=== PATIENT | female | born 1930 | race Caucasian/White ===

== ENCOUNTER 2017-05-21 14:44 | Emergency (ER) | payer MEDICARE ==
--- NOTE | 2017-05-21 15:53 | CT ---
CT HEAD NONCONTRAST DATE: 05/21/17 HISTORY: Fall. Head injury. Altered mental status. FINDINGS: No comparison. There is no evidence of acute intracranial hemorrhage or infarct. Diffuse cortical atrophy and chroni c ischemic small vessel disease are apparent. There is no mass effect or shift of midline structures. There is calcification within the arterial structures at the brain base. Mastoid air cells are clear. Opacification of the left maxillary sinus and left ethmoid air cells are partially visualized. CT face is pending. IMPRESSION: No acute intracranial abnormalities are demonstrated. POS: BLAINE
[2017-05-21 16:07] LABS: #Lymphocytes 1.2 thou/uL (1.20-3.40); #Monocytes 0.4 thou/uL (0.11-0.59); #Neutrophils 5.2 thou/uL (1.40-6.50); %Basophils 0.4 % (0.0-1.0); %Eosinophils 0.7 % (0.0-10.0); %Lymphocytes 17.5 % (21.0-51.0); %Monocytes 6.1 % (0.0-10.0); %Neutrophils 75.4 % (42.0-75.0); Hemoglobin 11.8 g/dL (12.0-16.0); Mean Corpuscular HGB CONC 33.5 g/dL (32.0-36.0); Mean Platelet Volume 7.2 fL (7.4-10.4); Platelet Count 245 thou/uL (130-400); RBC Distribution Width 13.1 % (11.5-14.5); Red Blood Cell (RBC) Count 3.38 mill/uL (4.20-5.40); White Blood Cell (WBC) Count 6.9 thou/uL (4.8-10.8)
--- NOTE | 2017-05-21 16:08 | CT ---
CT FACE NONCONTRAST 05/21/17 HISTORY: Fall. Facial injury. FINDINGS: There is complete heterogeneous opacification of the left maxillary sinus with thickening of the sinu s agee and slight expansion with medial deviation of the medial wall. A sagittally oriented well cor ticated defect extends through the roof of the left maxillary sinus with minimal expansion of the con tents encroaching upon the posterior orbital fat. There is no displacement of the inferior rectus mus jaylen. There is thickening of the remaining osseous structures surrounding the left maxillary sinus. Mi ld mucosal thickening is present within the left ethmoid air cells. Other paranasal sinuses remain cl ear. No acute fracture or dislocation are evident. The globes, mandible and zygomatic arches are inta ct. Mastoid air cells remain well aerated. IMPRESSION: 1. No acute traumatic injury is demonstrated. 2. 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 Mucocele is favored over acute upon chronic left maxillary sinusitis. Please consider ENT evalu ation on a nonemergent basis. POS: BLAINE
[2017-05-21 16:15] LABS: INR-International Normal Ratio 2.8; PTT 48.7 SEC (22.9-36.1); Prothrombin Time 30.5 SEC (12.0-14.7)
[2017-05-21 16:37] LABS: CKMB 1.6 ng/mL (0-6.6); Troponin I 0.015 ng/mL (< 0.028)
[2017-05-21 16:38] LABS: ALT (SGPT) 17 U/L (8-55); AST (SGOT) 16 U/L (5-34); Albumin 3.3 g/dL (3.4-4.8); Alkaline Phosphatase 69 U/L (40-150); Anion Gap 15 mmol/L (10-20); BUN (Urea Nitrogen) 20 mg/dL (9.8-20.1); Bilirubin, Total 0.3 mg/dL (0.2-1.2); Calc. Creatinine Clearance 0 mL/min (70-130); Calcium 9.3 mg/dL (7.8-10.44); Carbon Dioxide 26 mmol/L (23-31); Chloride 102 mmol/L (98-107); Estimated GFR-MDRD 41; Globulin 2.8 g/dL (2.4-3.5); Glucose 130 mg/dL (83-110); Potassium 4.4 mmol/L (3.5-5.1); Protein, Total 6.1 g/dL (6.0-8.3); Sodium 139 mmol/L (136-145)
[2017-05-21 16:49] LABS: Bilirubin Negative (Negative); Blood, Urine Negative (Negative); Clarity CLEAR (Clear); Glucose, Urine (Dipstick) Negative (Negative); Leukocyte Negative (Negative); Nitrite Negative (Negative); Protein, Urine (Dipstick) Negative (Neg-Trace); Specific Gravity, Urine 1.015 (1.002-1.036); Urobilinogen 0.2 mg/dL (0.2-1.0)
--- NOTE | 2017-06-08 22:42 | EKG ---
Test Reason : Blood Pressure : / mmHG Vent. Rate : 057 BPM Atrial Rate : 058 BPM P-R Int : 000 ms QRS Dur : 134 ms QT Int : 518 ms P-R-T Axes : 000 050 136 degrees QTc Int : 504 ms Wide QRS rhythm Right bundle branch block T wave abnormality, consider lateral ischemia Abnormal ECG Confirmed by ANGEL SOTO ([id number]), news videotape editor BRENDA MAJOR ([id number]) on 06/08/2017 10:40:52 PM Referred By: CHARLES Confirmed By:ANGEL SOTO
== END 2017-05-21 21:05 | disposition home or self-care (01) ==
LOC: ERS 14:44
DX: S00.83XA Contusion of other part of head, initial encounter (principal); F41.9 Anxiety disorder, unspecified; I10 Essential (primary) hypertension; Z87.891 Personal history of nicotine dependence; W06.XXXA Fall from bed, initial encounter
CPT/HCPCS: 36415; 70450; 70486; 80053; 81003; 82553; 83735; 84484; 85025; 85610; 85730; 93005